=== PATIENT | female | born 1935 | race Caucasian/White ===

== ENCOUNTER → 2017-04-06 | Outpatient (CLI) | payer MEDICARE ==
[~2017-04-06] MED LIST: AFLI2VIA INJ; AMLO5TAB4 PO; ASPI-621 PO; RITU10VI IV
[2017-04-06 11:38] LABS: BLOOD UREA NITROGEN 19 mg/dL (7-18)
[2017-04-06 11:39] LABS: ASPARTATE AMINO TRANSFERASE 15 U/L (15-37)
== END | disposition home or self-care (01) ==
LOC: RAD 10:53
PROVIDERS: ATTEND Nurse Practitioner Family
DX: M43.16 Spondylolisthesis, lumbar region (principal); M48.06 Spinal stenosis, lumbar region; M12.88 Other specific arthropathies, not elsewhere classified, other specified site; I70.0 Atherosclerosis of aorta; I10 Essential (primary) hypertension; G47.62 Sleep related leg cramps; G62.9 Polyneuropathy, unspecified; R51 Headache
CPT/HCPCS: 36415; 72120; 80053; 83735; 85025